=== PATIENT | male | born 1955 | race Hispanic/Latino ===

== ENCOUNTER 2020-08-24 21:14 | Emergency (ER) | payer BC, OTHER ==
[~2020-08-24] VITALS: Ht 162.6 cm; Wt 90.7 kg
[~2020-08-24 21:14] MED LIST: ASPI-556 PO; LISI20TA24 PO; METO-408 PO; SIMV-43 PO
[2020-08-24 21:23] VITALS: BP 176/95
[2020-08-24 21:31] LABS: BASOPHILS % (AUTO) 0.5 % (0.0-5.0); EOSINOPHILS % (AUTO) 1.3 % (0.0-8.0); HEMATOCRIT 45.1 % (42-54); MEAN CORPUSCULAR HEMOGLOBIN 30.6 pg (27.0-33.0); MEAN CORPUSCULAR HGB CONC 33.9 g/dL (32.0-36.0); MEAN CORPUSCULAR VOLUME 90.2 fL (79-99); NEUTROPHILS % (AUTO) 64.7 % (40.0-77.0); PLATELET COUNT (AUTO) 424 K/uL (130-400); RED CELL DISTRIBUTION WIDTH 13.3 % (11.0-15.5); WHITE BLOOD COUNT (AUTO) 12.7 K/uL (4.8-10.8)
[2020-08-24 21:44] LABS: CARBON DIOXIDE 32 mmol/L (21-32); CHLORIDE 99 mmol/L (101-111); GLOMERULAR FILTR. RATE CALC 79 mL/min (>60); GLUCOSE,RANDOM 115 mg/dL (70-105); POTASSIUM 4.1 mmol/L (3.5-5.1); SODIUM SERUM 136 mmol/L (136-145); UREA NITROGEN, BLOOD 29 mg/dL (7-18)
[2020-08-24 21:46] LABS: INR 0.99 (0.85-1.15); PROTHROMBIN TIME 10.8 SEC (9.6-11.6)
[2020-08-24 21:54] LABS: ALANINE AMINOTRANSFERASE 26 U/L (12-78); ALBUMIN 4.3 g/dL (3.5-5.0); ASPARTATE AMINOTRANSFERASE 19 U/L (10-37); BILIRUBIN,TOTAL 0.4 mg/dL (0.2-1.0); CREATINE KINASE, TOTAL 66 U/L (21-232); MYOGLOBIN 26 ng/mL (10-92); TOTAL PROTEIN, SERUM 8.2 g/dL (6.0-8.3); TROPONIN I < 0.04 ng/mL (0.00-0.06)
[2020-08-24] MEDS ORDERED: FAMOTIDINE 20MG TAB PO ONE (22:00)
[2020-08-24] MEDS ORDERED: ASPIRIN 325 MG TABLET PO ONE (22:00)
[2020-08-24] MEDS ORDERED: LIDOCAINE HCL 2% VISCOUS 15 ML UDCUP PO ONE (22:00)
[2020-08-24] MEDS ORDERED: MAG/ALUM/SIMETH 30 ML UDCUP PO ONE (22:00)
[2020-08-24 22:02] VITALS: BP 123/87
[2020-08-24] MEDS ORDERED: FAMO-136 PO (23:48)
== END 2020-08-25 00:02 | disposition home or self-care (01) ==
LOC: EDH 21:14
DX: K29.70 Gastritis, unspecified, without bleeding (principal); R07.89 Other chest pain; I10 Essential (primary) hypertension; I25.10 Atherosclerotic heart disease of native coronary artery without angina pectoris; E10.9 Type 1 diabetes mellitus without complications; E78.00 Pure hypercholesterolemia, unspecified; Z95.0 Presence of cardiac pacemaker; Z98.890 Other specified postprocedural states; Z79.899 Other long term (current) drug therapy; Z79.82 Long term (current) use of aspirin
CPT/HCPCS: 36415; 71045; 80053; 82550; 83874; 84484; 85025; 85610; 93005

== ENCOUNTER 2022-02-21 14:45 | Emergency (ER) | payer OTHER ==
[~2022-02-21] VITALS: Ht 160 cm; Wt 81.6 kg
[~2022-02-21 14:45] MED LIST changes: +FAMO-136 PO
[2022-02-21] MEDS ORDERED: LIDOCAINE HCL 1% 20 ML VIAL ONE (19:47)
[2022-02-21] MEDS ORDERED: TETANUS/DIPHTHERIA TOXOID [ADULT] 0.5 ML VIAL IM ONE ×2 (19:49→20:00)
[2022-02-21] MEDS ORDERED: CLINDAMYCIN 150 MG CAP ONE (19:57)
[2022-02-21] MEDS ORDERED: CLIN-141 PO (21:10)
[2022-02-21 21:17] VITALS: BP 133/86
== END 2022-02-21 21:18 | disposition home or self-care (01) ==
LOC: EDH 14:45
DX: S60.351A Superficial foreign body of right thumb, initial encounter (principal); I10 Essential (primary) hypertension; E11.9 Type 2 diabetes mellitus without complications; E78.00 Pure hypercholesterolemia, unspecified; I25.10 Atherosclerotic heart disease of native coronary artery without angina pectoris; Z98.890 Other specified postprocedural states; Z79.899 Other long term (current) drug therapy; Z79.82 Long term (current) use of aspirin; W45.8XXA Other foreign body or object entering through skin, initial encounter; Y93.89 Activity, other specified; Y92.89 Other specified places as the place of occurrence of the external cause; Y99.8 Other external cause status
CPT/HCPCS: 73130; 90471; 90714

== ENCOUNTER 2023-12-24 05:44 | Day surgery (SDC) | payer OTHER ==
[2023-12-24] VITALS (10 sets, daily range): BP systolic 127–159; BP diastolic 60–75; PULSE 60–68; RESP 15–18; TEMP 97.3–97.9
[~2023-12-24] VITALS: Ht 162.6 cm; Wt 85.3 kg
[~2023-12-24 05:44] MED LIST changes: +ATOR40TA71 PO; -FAMO-136 PO; +HYDR12.54 PO; -LISI20TA24 PO; +METO-391 PO; -METO-408 PO; -SIMV-43 PO; +VALS160T29 PO
[2023-12-24] MEDS: 0.9%NACL 1000ML 1,000 ML IV ONE (06:37)
[2023-12-24] MEDS ORDERED: proPOFol 10 MG/ML 20ML VIAL IV ONE ×2 (07:16→07:26)
[2023-12-24] MEDS ORDERED: ePHEDrine SULFate 50 MG/ML AMPULE ONE (07:37)
[2023-12-24] MEDS ORDERED: PANT40TA54 PO (08:39)
[2023-12-24] MEDS ORDERED: HYDR30CR79 TP (08:52)
== END 2023-12-24 09:00 | disposition home or self-care (01) ==
LOC: ENDO 05:44 → DAH 05:44 → ENDO 09:00
PROVIDERS: ATTEND Internal Medicine Gastroenterology
DX: Z12.11 Encounter for screening for malignant neoplasm of colon (principal); D12.0 Benign neoplasm of cecum; K31.89 Other diseases of stomach and duodenum; R12 Heartburn; K29.70 Gastritis, unspecified, without bleeding; K57.30 Diverticulosis of large intestine without perforation or abscess without bleeding; K64.0 First degree hemorrhoids; K64.4 Residual hemorrhoidal skin tags; I10 Essential (primary) hypertension; E78.5 Hyperlipidemia, unspecified; I25.10 Atherosclerotic heart disease of native coronary artery without angina pectoris; Z95.5 Presence of coronary angioplasty implant and graft; Z79.82 Long term (current) use of aspirin; Z79.899 Other long term (current) drug therapy
CPT/HCPCS: 45385; 43239; J7030; J3490; J2704 ×2; A4620; A4215 ×2; A4223; A4222; A4221; A4663; A4606

== ENCOUNTER 2024-03-02 12:06 | Observation (INO) | payer OTHER, MEDICARE ==
[~2024-03-02] VITALS: Ht 162.6 cm; Wt 87.0 kg
[~2024-03-02 12:06] MED LIST changes: +HYDR30CR79 TP; +PANT40TA54 PO
[2024-03-02] MEDS: hydrALAZine 20MG/ML VIAL ONE (12:33)
[2024-03-02] MEDS: hydrALAZine 20MG/ML VIAL IV ONE (12:33)
[2024-03-02 12:39] LABS: BASOPHILS # (AUTO) 0.04 K/uL (0.00-0.20); BASOPHILS % (AUTO) 0.5 % (0.0-5.0); EOSINOPHILS # (AUTO) 0.06 K/uL (0.00-0.70); EOSINOPHILS % (AUTO) 0.8 % (0.0-8.0); HEMATOCRIT 42.2 % (42-54); IMMATURE GRANULOCYTE ABSOLUTE 0.03 K/uL (0-1); LYMPHOCYTES # (AUTO) 1.4 K/uL (1.0-4.8); LYMPHOCYTES % (AUTO) 17.4 % (21.0-51.0); MEAN CORPUSCULAR HEMOGLOBIN 29.9 pg (27.0-33.0); MEAN CORPUSCULAR HGB CONC 33.2 g/dL (32.0-36.0); MONOCYTES # (AUTO) 0.5 K/uL (0.1-1.0); MONOCYTES % (AUTO) 6.1 % (3.0-13.0); NEUTROPHILS # (AUTO) 5.9 K/uL (1.8-7.7); NEUTROPHILS % (AUTO) 74.8 % (40.0-77.0); PLATELET COUNT (AUTO) 386 K/uL (130-400); RED BLOOD CELL COUNT(AUTO) 4.69 MIL/uL (4.50-6.20); RED CELL DISTRIBUTION WIDTH 13.7 % (11.0-15.5); WHITE BLOOD COUNT (AUTO) 7.9 K/uL (4.8-10.8)
--- NOTE | 2024-03-02 12:45 | EKG ---
[facility] Test Date: 2024-03-02 Test Time: 12:17:59 Pat Name: KEO ALDRIDGE Department: ED Room: 431 Gender: M Marketing Agent: [id number] : 1955 Requested By: CATRACHITA HENSON Order Number: [id number] Reading MD: Lorelei Garrett Measurements Intervals [place] Rate: 64 P: 40 NM: 180 QRS: -21 QRSD: 101 T: 20 QT: 410 QTc: 422 Interpretive Statements Sinus rhythm Probable left ventricular hypertrophy Compared to ECG 08/24/2020 21:21:16 Myocardial infarct finding no longer present Electronically Signed On 03-03-2024 08:17:07 BANKING TEACHER by Lorelei Garrett Please click the below link to view image of tracing.
--- NOTE | 2024-03-02 12:45 | ERN ---
General Chief Complaint: Chest Pain Stated Complaint: CP Time Seen by MD: 12:17 Time Seen by Midlevel: 12:17 Source: patient History of Present Illness Initial Comments Patient is a 68-year-old male with a past medical history of hypertension and atrial fibrillation presenting to the emergency department with chest pain that has been ongoing for the last 2-3 days. Patient does report having an extensive history of GERD and believes his chest pain was attributed to this. He has been seen in our emergency department numerous times for the same complaint and his diagnosis is usually GERD. Today he states his chest pain felt different so he decided to report to the ER for further evaluation. His current medications include atorvastatin, pantoprazole, metoprolol, and valsartan. Allergies: Coded Allergies: No Known Drug Allergies (Unverified Allergy, Unknown, 08/24/20) Home Meds Reported Medications Latanoprost (Latanoprost) 0.005 % Drops, 1 DROP OP HS, ML 0 Refills 03/02/24 Pantoprazole Sodium (Pantoprazole Sodium) 40 Mg Tablet.dr, 1 TAB PO DAILY for 30 Days, #30 TAB 0 Refills 12/24/23 Hydrochlorothiazide (Hydrochlorothiazide) 12.5 Mg Tablet, 12.5 MG PO DAILY, TAB 12/23/23 Atorvastatin Calcium (Atorvastatin Calcium) 40 Mg Tablet, 40 MG PO DAILYBKFST, TAB 12/23/23 Valsartan (Valsartan) 160 Mg Tablet, 160 MG PO DAILY, TAB 12/23/23 Metoprolol Succinate (Metoprolol Succinate) 50 Mg Tab.er.24h, 50 MG PO DAILYBKFST, TAB 12/23/23 Aspirin (Aspir 81) 81 Mg Tablet.dr, 81 MG PO AM, TAB 07/25/14 Past Medical History Past Medical History: CAD, Diabetes-Type I, High Cholesterol, Hypertension Past Surgical History: Other Surgical History Other: STENT CARDIAC, LT SHOULDER Family History Family History: Negative Social History Social History: Negative ROS Dictation CONSTITUTIONAL: Negative except for HPI HEAD/FACE: Negative except for HPI EENT: Negative except for HPI RESPIRATORY: Negative except for HPI GASTROINTESTINAL/ABDOMINAL: Negative except for HPI GENITOURINARY: Negative except for HPI MUSCULOSKELETAL: Negative except for HPI INTEGUMENTARY: Negative except for HPI NEUROLOGICAL/PSYCH: Negative except for HPI HEMATOLOGIC/LYMPHATIC: Negative except for HPI All Systems Negative, Except as noted above. 13 point review of systems assessed and all negative except for above. Physical Exam Physical Exam Dictation Vital Signs reviewed General Appearance: Alert, oriented x 3, no acute distress, well developed, nourished. Head and Face: non-traumatic. Eyes: PERRL, pink conjunctivas, eyelid no trauma, anterior chamber with arcus senilis. Ears: Pinnas intact and no signs of trauma or erythema ear canals clear and no discharge TM no erythema Nose: No discharge, no bleeding. Oropharynx: Mouth normal, tongue pink, pharynx clear,no erythema, tonsils no exudates, no abscesses noted, mucous membrane moist Neck: Supple, non-tender, no thyromegaly, no masses, no JVD, no bruits Breast:Deferred Chest:No tenderness, no crepitus, no paradoxical movement, no retractions Lungs:Clear, well-ventilated, symmetric, no rales, no wheezing, no rhonchi, no stridor, good breath sounds bilaterally Heart: Regular rate, regular rhythm, no murmur, no gallops Vascular: no peripheral edema, Abdomen: Soft, positive bowel sounds, nondistended, no guarding, nontender, no rebound, no masses no hepatomegaly, no splenomegaly, no Martinez's sign, no hernias. Rectal: Deferred Genital: Deferred Neurological: Normal speech, motor function intact, sensory function intact Musculoskeletal: Neck nontender, full range of motion, back nontender, full range of motion, Extremities: nontender, full range of motion Skin: Color pink, dry, no turgor, no rash, no lacerations, no abrasions, no contusions. Lymphatic: Deferred Results Laboratory and Microbiology Lab and Micro Result Laboratory Tests Test 03/02/24 12:20 03/02/24 12:45 03/02/24 12:53 03/02/24 13:57 White Blood Count 7.9 K/uL (4.8-10.8) Red Blood Count 4.69 MIL/uL (4.50-6.20) Hemoglobin 14.0 g/dL (14.0-18.0) Hematocrit 42.2 % (42-54) Mean Corpuscular Volume 90.0 fL (79-99) Mean Corpuscular Hemoglobin 29.9 pg (27.0-33.0) Mean Corpuscular Hemoglobin Concent 33.2 g/dL (32.0-36.0) Red Cell Distribution Width 13.7 % (11.0-15.5) Platelet Count 386 K/uL (130-400) Mean Platelet Volume 9.5 fL (7.5-10.5) Immature Granulocyte % (Auto) 0.4 % (0-1) Neutrophils (%) (Auto) 74.8 % (40.0-77.0) Lymphocytes (%) (Auto) 17.4 % (21.0-51.0) L Monocytes (%) (Auto) 6.1 % (3.0-13.0) Eosinophils (%) (Auto) 0.8 % (0.0-8.0) Basophils (%) (Auto) 0.5 % (0.0-5.0) Neutrophils # (Auto) 5.9 K/uL (1.8-7.7) Lymphocytes # (Auto) 1.4 K/uL (1.0-4.8) Monocytes # (Auto) 0.5 K/uL (0.1-1.0) Eosinophils # (Auto) 0.06 K/uL (0.00-0.70) Basophils # (Auto) 0.04 K/uL (0.00-0.20) Absolute Immature Granulocyte (auto 0.03 K/uL (0-1) Nucleated Red Blood Cells 0.0 % (0.0-0.19) Troponin I High Sensitivity 5 ng/L (4-75) B-Type Natriuretic Peptide 82 pg/mL (0-100) Troponin I < 0.05 ng/mL (0.00-0.05) Sodium Level 138 mmol/L (136-145) Potassium Level 3.8 mmol/L (3.5-5.1) Chloride Level 103 mmol/L (101-111) Carbon Dioxide Level 25 mmol/L (21-32) Blood Urea Nitrogen 15 mg/dL (7-18) Creatinine 0.8 mg/dL (0.5-1.3) Glomerular Filtration Rate Calc 95 mL/min (>90) Random Glucose 135 mg/dL (70-105) H Total Calcium 9.1 mg/dL (8.5-10.1) Total Creatine Kinase 75 U/L (21-232) Urine Color LIGHT-YELLOW (YELLOW) Urine Appearance CLEAR (CLEAR) Urine pH 7.5 (5.0-8.0) Urine Specific Dema 1.015 (1.001-1.031) Urine Protein NEGATIVE mg/dL (NEGATIVE) Urine Glucose (UA) NEGATIVE mg/dL (NEGATIVE) Urine Ketones 5 mg/dL (NEGATIVE) H Urine Occult Blood NEGATIVE (NEGATIVE) Urine Nitrate NEGATIVE (NEGATIVE) Urine Bilirubin NEGATIVE mg/dL (NEGATIVE) Urine Urobilinogen 0.2 mg/dL (0.2-1.0) Urine Leukocyte Esterase NEGATIVE Ifeoma/uL Urine RBC 0-1 /HPF (0-1) Urine WBC 0-1 /HPF (0-1) Urine Squamous Epithelial Cells RARE /HPF (0-2) Urine Bacteria None /HPF (None Seen) Labs Reviewed?: Yes MDM MDM: Differential diagnosis: ACS, angina, pneumonia, electrolyte abnormality, dehydration, NSTEMI Rationale: Tests considered and ordered secondary to shared decision making include: Previous outside records reviewed: Old ER visits. Risk of complication and/or morbidity or mortality of patient management: None Medications-Per medication reconciliation Need for hospitalization: Patient does meet criteria for hospitalization. Need for emergency major/minor surgery: No There are no social concerns with this patient. Prescription drug management Prescriptions will include symptomatic care Patient's prior external medical records from other ER visits were reviewed by me as indicated. Prior testing and results from previous visits were reviewed. Prior tests were taken into account with medical decision making and resource utilization, independent historian/historians were used to obtain complete medical history. I independently interpreted the test that were performed, results were reviewed by me and considered findings on radiology if ordered. Medical management and examination interpretation discussions were had by me with other qualified healthcare professionals as indicated for the patient's care. ED Course Orders Procedure Category Date Status Time Vital Signs Per CPOE 03/02/24 Transmitted Routine 12:12 B-Type Natriuretic LAB 03/02/24 Complete Peptide 12:12 Chest 1vw RAD 03/02/24 Resulted 12:12 12 Lead Ekg Tracing- EKG 03/02/24 Complete Technical 12:12 Oxygen By Nc/Pulse Ox CPOE 03/02/24 Transmitted 12:12 Maintain Iv CPOE 03/02/24 Transmitted 12:12 Iv Insertion CPOE 03/02/24 Transmitted 12:12 Cardiac Monitoring CPOE 03/02/24 Transmitted 12:12 Pulse Oximetry With CPOE 03/02/24 Transmitted Vs And Prn 12:12 Cbc With Differential LAB 03/02/24 Complete 12:12 Activity: Br W/Brp CPOE 03/02/24 Transmitted With Assist 12:12 Urinalysis Profile LAB 03/02/24 Complete 12:12 Troponin Poc Order LAB 03/02/24 Complete Only 12:12 Bedside Troponin-I LAB.ER 03/02/24 In Process (Poc) 12:12 Troponin I High LAB 03/02/24 Complete Sensitivity 12:14 Hydralazine 20mg Inj PHA 03/02/24 Complete (Apresoline 20mg In 12:22 Hydralazine 20mg Inj PHA 03/02/24 Complete (Apresoline 20mg In 12:30 Basic Metabolic Panel LAB 03/02/24 Complete 12:45 Creatine Kinase, Total LAB 03/02/24 Complete 12:45 Current Medications Medications (Trade) Dose Ordered Sig/Keagan Route PRN Reason Start Time Stop Time Status Last Admin Dose Admin Hydralazine HCl (APRESOLine 20MG INJ) 10 mg ONCE ONCE IV 03/02/24 12:30 03/02/24 12:31 DC 03/02/24 12:33 Hydralazine HCl (APRESOLine 20MG INJ) 20 mg STK-MED ONCE .ROUTE 03/02/24 12:22 03/02/24 12:22 DC Vital Signs Date Time Temp Pulse Resp B/P (MAP) Pulse Ox O2 Delivery O2 Flow Rate FiO2 03/02/24 13:19 68 14 165/80 98 Room Air* 0 21 03/02/24 12:25 67 18 203/99 97 Room Air* 0 21 03/02/24 12:25 67 18 203/99 Room Air 0 HEART Score Response (Comments) Value History: Moderate suspicion (+1) 1 EKG: Normal 0 Age: > 65yrs (+2) 2 Risk Factors: 3+ risk factors (+2) 2 Initial Troponin: Normal limit (0) 0 HEART Score Risk: Mod Risk for MACE (4-6) Total 5 DX & DISP Disposition: Inpatient Decision to Admit Date: Mar 02, 2024 Departure Impression: Primary Impression: Angina at rest Additional Impression: Chest pain Condition: Stable Referrals: CHRYSTAL CLINTON (PCP) I have reviewed the case, and I agree with, Diagnosis and Plan I performed the substantive portion of the visit. I have reviewed and personally made and approve the management plan that is documented in the note by myself or the ALY. I acknowledge for responsibility for the patient's management plan. AISSATOU CARNES Mar 02, 2024 12:44
--- NOTE | 2024-03-02 13:00 | HMCIMG ---
CHEST 1VW HISTORY: Chest pain COMPARISON: 08/24/2020 FINDINGS: A frontal projection of the chest was obtained. No acute pulmonary infiltrates is seen. The heart is normal in size. Prominent interstitial markings are seen. Degenerative changes are seen. Aortic calcifications are seen. IMPRESSION: 1. No acute pulmonary infiltrate is seen.
[2024-03-02 13:06] LABS: B-TYPE NATRIURETIC PEPTIDE 82 pg/mL (0-100)
[2024-03-02 13:14] LABS: CREATININE 0.8 mg/dL (0.5-1.3); POTASSIUM 3.8 mmol/L (3.5-5.1)
[2024-03-02 14:33] LABS: ADD UA MICROSCOPIC YES; APPEARANCE,URINE CLEAR (CLEAR); BILIRUBIN,URINE NEGATIVE (NEGATIVE); COLOR,URINE LIGHT-YELLOW (YELLOW); GLUCOSE, URINE (UA) NEGATIVE (NEGATIVE); KETONES,URINE 5 mg/dL (NEGATIVE); LEUKOCYTE ESTERASE ,URINE NEGATIVE Leu/uL (NEGATIVE); NITRATE,URINE NEGATIVE (NEGATIVE); OCCULT BLOOD,URINE NEGATIVE (NEGATIVE); PH,URINE 7.5 (5.0-8.0); PROTEIN,URINE NEGATIVE (NEGATIVE); UROBILINOGEN,URINE 0.2 mg/dL (0.2-1.0)
[2024-03-02 14:35] LABS: MUCUS,URINE RARE LPF (None Seen); RBC,URINE 0-1 /HPF (0-1); SQUAMOUS EPITHELIAL CELL,UR RARE /HPF (0-2); WBC,URINE 0-1 /HPF (0-1)
--- NOTE | 2024-03-02 16:18 | NUR ---
HOME MEDICATIONS UPDATED ON EMR
--- NOTE | 2024-03-02 16:24 | EKG ---
[facility] Test Date: 2024-03-02 Test Time: 16:21:11 Pat Name: KEO ALDRIDGE Department: [facility]HIP Room: 431 Gender: M Bending Frame Operator: [id number] : 1955 Requested By: JOSE PEREZ Order Number: [id number] Reading MD: Lorelei Garrett Measurements Intervals [place] Rate: 65 P: 34 ID: [id number] QRS: -27 QRSD: 101 T: 16 QT: 434 QTc: 452 Interpretive Statements Sinus rhythm Probable left ventricular hypertrophy Compared to ECG 03/02/2024 12:17:59 No significant changes Electronically Signed On 03-03-2024 08:17:28 MOSAIC WORKER by Lorelei Garrett Please click the below link to view image of tracing.
[2024-03-02] MEDS ORDERED: MAG/ALUM/SIMETH 30 ML UDCUP PO PRN (16:30)
[2024-03-02] MEDS ORDERED: ondanSETRON 4MG INJ IV PRN (16:30)
[2024-03-02] MEDS ORDERED: doCUSate SODIUM 100 MG CAP PO PRN (16:30)
[2024-03-02] MEDS ORDERED: LACTULOSE 20 GM/30 ML UDCUP PO PRN (16:30)
[2024-03-02] MEDS ORDERED: DiphenhydrAMINE HCL 25 MG CAPSULE PO PRN (16:30)
[2024-03-02] MEDS: INSULIN humuLIN R 100 UNIT/ML 3ML SQ SCH (16:30)
[2024-03-02] MEDS ORDERED: guaiFENesin-DM 200/20MG 10ML PO PRN (16:30)
[2024-03-02] MEDS ORDERED: ALPRAZolam 0.5 MG TABLET PO PRN (16:30)
[2024-03-02] MEDS ORDERED: acetaMINOPHEN 325 MG TAB PO PRN ×2 (16:30)
[2024-03-02] MEDS ORDERED: BENZOCAINE/MENTH/CETYLPYRD CL 1 EACH LOZENGE MM PRN (16:30)
[2024-03-02] MEDS ORDERED: DiphenhydrAMINE HCL 50 MG/ML VIAL IV PRN (16:30)
[2024-03-02] MEDS ORDERED: LOPERAMIDE HCL 2 MG CAP PO PRN (16:30)
[2024-03-02] MEDS ORDERED: NITROGLYCERIN 0.4 MG SL TAB SL PRN (16:30)
[2024-03-02] MEDS ORDERED: polyETHYLene GLYCol 3350 17 GM POWD.PACK PO PRN (16:30)
[2024-03-02] MEDS ORDERED: ARTIFICAL TEARS SOL 15 ML OP PRN (16:30)
[2024-03-02] MEDS ORDERED: guaiFENesin SUGAR-FREE 100 MG/5 ML UDCUP PO PRN (16:30)
[2024-03-02] MEDS: LIDOCAINE HCL 2% VISCOUS 30 ML, MAG/ALUM/SIMETH 30ML 30 ML, DICYCLOMINE HCL 20 MG PO PRN (16:32)
[2024-03-02] MEDS: LIDOCAINE HCL 2% VISCOUS 15 ML UDCUP ONE (16:32)
[2024-03-02] MEDS: DICYCLOMINE HCL 10 MG/5 ML ML PO ONE (16:32)
[2024-03-02 16:49] LABS: HEMOGLOBIN A1C 6.3 % (4.0-6.0); INR 1.02 (0.85-1.15); PROTHROMBIN TIME 11.4 SEC (9.6-11.6)
[2024-03-02 16:50] LABS: PARTIAL THROMBOPLASTIN TIME 28.5 SEC (26.3-35.5)
--- NOTE | 2024-03-02 17:20 | HP ---
[facility] HISTORY & PHYSICAL Date Patient Seen: Mar 02, 2024 Time of Visit: 2099 Supervising Physician: [Dr. Savage Ann ] Primary Care Physician: [Dr. Schaefer ] Outpatient Specialists: [Dr. Ma-cardiology ] Inpatient Consults: [ ] PROBLEM LIST: Chest pain, rule-out ACS event-POA Hypertensive urgency,resolved-POA CAD s/p stent WPW s/p ablation Primary HTN HLD Gastritis Fungal infection on toes PLAN: -Admit to medsur telemetry -Serial troponin q6H, trend EKG -Monitor EKG changes -ACS risk stratification: TSH, lipid panel, Hg A1c -Obtain echo in am -Manage pain PRN -Maintain hemodynamic stability, PRN IV Labetalol for SBP >160 -Consider cardiology consult if clinical presentation worsens, changes on EKG and uptrending troponin. Day team to follow-up pls -Continue ASA and statin. HPI: [Patient is a 68-year-old male with PMH significant for CAD, W[place] s/p stent, WPW s/p ablation, HTN, gastritis and HLD who has presented to the ED concerning 3- day duration epigastric pain, worst today without known triggers or provocation. He claims that he was not sure if the pain was gastritis-related or cardiac pain. It seems like the same when he had the WV 15 years ago but this time without the accompanying N/V, dyspnea, diaphoresis or dizziness. Negative for radiation or migration and describes it as "small little pricks" with a scale of 8/10. His BP upon ED arrival was 203/99. His labworks were unremarkable and troponin was WNL, no EKG significant findings. He was given Pepcid, Bentyl and GI cocktail. IV Hydralazine was also given to address the hypertensive urgency. Physical assessment was unrevealing without reproducible chest tenderness and currently has ZERO PAIN. Goals of care were discussed with the patient verbalizing understanding and agreement. ] PAST MEDICAL HX: see above PAST SURGICAL HX: noncontributory SOCIAL HISTORY: No tobacco, ETOH, or illicit drug use Coded Allergies: No Known Drug Allergies (Unverified Allergy, Unknown, 08/24/20) REVIEW OF SYSTEMS: 12 point ROS reviewed with patient. Pertinent positives mentioned above. Otherwise negative. PHYSICAL EXAM: GENERAL: alert, awake oriented x 3 HEENT: EOMI, Sclera non icteric, moist mucosa NECK: Supple, no JVD, trachea midline LUNGS: Clear breath sounds bilaterally. No wheezes HEART: Regular rate and rhythm. Normal S1 and S2, without murmurs ABD: Abdomen soft, nontender. Bowel sounds present EXT: No clubbing cyanosis or edema NEURO: Alert and oriented to person, follows commands Vital Signs (last 8hr) Date Time Temp Pulse Resp B/P (MAP) Pulse Ox O2 Delivery O2 Flow Rate FiO2 03/02/24 13:19 68 14 165/80 98 Room Air* 0 21 03/02/24 12:25 67 18 203/99 97 Room Air* 0 21 03/02/24 12:25 67 18 203/99 Room Air 0 LABS: Hematology Labs: Test 03/02/24 12:20 Range/Units White Blood Count 7.9 4.8-10.8 K/uL Red Blood Count 4.69 4.50-6.20 MIL/uL Hemoglobin 14.0 14.0-18.0 g/dL Hematocrit 42.2 42-54 % Mean Corpuscular Volume 90.0 79-99 fL Mean Corpuscular Hemoglobin 29.9 27.0-33.0 pg Mean Corpuscular Hemoglobin Concent 33.2 32.0-36.0 g/dL Red Cell Distribution Width 13.7 11.0-15.5 % Platelet Count 386 130-400 K/uL Mean Platelet Volume 9.5 7.5-10.5 fL Immature Granulocyte % (Auto) 0.4 0-1 % Neutrophils (%) (Auto) 74.8 40.0-77.0 % Lymphocytes (%) (Auto) 17.4 L 21.0-51.0 % Monocytes (%) (Auto) 6.1 3.0-13.0 % Eosinophils (%) (Auto) 0.8 0.0-8.0 % Basophils (%) (Auto) 0.5 0.0-5.0 % Neutrophils # (Auto) 5.9 1.8-7.7 K/uL Lymphocytes # (Auto) 1.4 1.0-4.8 K/uL Monocytes # (Auto) 0.5 0.1-1.0 K/uL Eosinophils # (Auto) 0.06 0.00-0.70 K/uL Basophils # (Auto) 0.04 0.00-0.20 K/uL Absolute Immature Granulocyte (auto 0.03 0-1 K/uL Nucleated Red Blood Cells 0.0 0.0-0.19 % Chemistry Labs: Test 03/02/24 16:36 03/02/24 16:26 03/02/24 12:53 03/02/24 12:45 Range/Units Whole Blood Glucose 123 H 70-110 MG/DL Hemoglobin A1c 6.3 H 4.0-6.0 % Estimated Average Glucose (eAG) 134 H 70-126 mg/dL Total Creatine Kinase 85 21-232 U/L Troponin I High Sensitivity 9.1 4-75 ng/L B-Type Natriuretic Peptide 70 0-100 pg/mL Triglycerides Level 43 30-200 mg/dL Cholesterol Level 99 <200 mg/dL LDL Cholesterol 52 0-99 mg/dL HDL Cholesterol 38 29-71 mg/dL Sodium Level 138 136-145 mmol/L Potassium Level 3.8 3.5-5.1 mmol/L Chloride Level 103 101-111 mmol/L Carbon Dioxide Level 25 21-32 mmol/L Blood Urea Nitrogen 15 7-18 mg/dL Creatinine 0.8 0.5-1.3 mg/dL Glomerular Filtration Rate Calc 95 >90 mL/min Random Glucose 135 H 70-105 mg/dL Total Calcium 9.1 8.5-10.1 mg/dL Troponin I < 0.05 0.00-0.05 ng/mL Coagulation Labs: Test 03/02/24 16:26 Range/Units Prothrombin Time 11.4 9.6-11.6 SEC Prothromb Time International Ratio 1.02 0.85-1.15 Activated Partial Thromboplast Time 28.5 26.3-35.5 SEC DIAGNOSTICS / RADIOLOGY RESULTS: [ ] PLAN NEURO: Minimize central acting medications as possible. Maintain fall precautions, adequate lighting during the day PULMONARY: Supplemental 02 as needed. Maintain aspiration precautions at all times CARDIOVASCULAR: Follow hemodynamics. Vital signs per facility protocol GI & NUTRITION: Continue with nutritional support. Continue stool softeners and laxatives as needed. KIDNEYS & ELECTROLYTES: Strict monitoring of intake, output and overall fluid balance. Avoid nephrotoxic medications to the extent possible. Medications to be dosed according to renal function. Monitor electrolytes and replace as needed ENDOCRINE: Maintain blood glucose between 100-180 at all times. Hypoglycemia protocol in place INFECTIOUS DISEASE: Trend temperature, WBC and procalcitonin level Follow cultures, deescalate antibiotics as soon as possible. Panculture if new onset fever ONCOLOGY/HEMATOLOGY/COAGULATION: Monitor for s/s of bleeding Monitor hemoglobin, coagulation studies as needed SKIN: Pressure ulcer prevention per facility protocol Specialty mattress ORTHO/REHAB: Continue PT/OT Prophylaxis: Continue GI and DVT prophylaxis Code Status: Full Resuscitation Disposition: TBD Other: Total patient care time: 35 minutes MARICRUZ MANNING Mar 02, 2024 17:20
[2024-03-02] MEDS: FAMOTIDINE 20MG TAB PO SCH (19:28)
[2024-03-02] MEDS: FAMOTIDINE 20MG TAB ONE (19:33)
[2024-03-02] MEDS ORDERED: LATA2.5D14 OP (20:21)
[2024-03-02] MEDS: atorVAStatin 40 MG TABLET PO SCH (23:30)
[2024-03-02 23:40] VITALS: O2SAT 95
--- NOTE | 2024-03-02 23:40 | NUR ---
arrival patient alert and oriented times 4. plan of care discussed with him and he verbalized understanding. patient showered when he came. home meds are entered. patient has no pain or any symptoms. He is ambulatory. He has slept about 3 hours tonight. call light within reach, bed alarm on, 2 side rails up, will continue to monitor patient.
[2024-03-03] VITALS: BP 186/95; PULSE 71; RESP 18; TEMP 97.5
[2024-03-03] MEDS: LAbetaLOL 20MG SYG IV PRN (00:29)
[2024-03-03 00:57] LABS: THYROID STIMULATING HORMONE 3.05 uIU/mL (0.36-3.74)
[2024-03-03 01:14] VITALS: BP 165/76; PULSE 63
[2024-03-03 04:00] VITALS: BP 154/71; PULSE 65; RESP 18; TEMP 98.3
--- NOTE | 2024-03-03 07:27 | EKG ---
[facility] Test Date: 2024-03-02 Test Time: 16:51:19 Pat Name: KEO ALDRIDGE Department: [facility] Room: 431 1 Gender: M Cop: [id number] : 1955 Requested By: JOSE PEREZ Order Number: [id number] Reading MD: Lorelei Garrett Measurements Intervals [place] Rate: P: 0 [place]: 0 QRS: 0 QRSD: 0 T: 0 QT: 0 QTc: 0 Interpretive Statements Compared to ECG 03/02/2024 16:21:11 Sinus rhythm no longer present Electronically Signed On 03-03-2024 08:17:29 HOUSEHOLD WORKER by Lorelei Garrett Please click the below link to view image of tracing.
--- NOTE | 2024-03-03 07:27 | EKG ---
[facility] Test Date: 2024-03-02 Test Time: 23:52:25 Pat Name: KEO ALDRIDGE Department: [facility] Room: 431 1 Gender: M Eddy Current Inspector: [id number] : 1955 Requested By: JOSE PEREZ Order Number: [id number] Reading MD: Lorelei Garrett Measurements Intervals [place] Rate: 58 P: 47 [place]: 192 QRS: -15 QRSD: 92 T: -4 QT: 462 QTc: 453 Interpretive Statements Sinus bradycardia Moderate voltage criteria for LVH, may be normal variant Compared to ECG 03/02/2024 16:51:19 Left ventricular hypertrophy now present Electronically Signed On 03-03-2024 08:18:06 SHUTTLE BUS DRIVER by Lorelei Garrett Please click the below link to view image of tracing.
[2024-03-03 07:47] VITALS: BP 164/86; PULSE 70; RESP 15; TEMP 97.9
[2024-03-03 07:50] VITALS: O2SAT 98
[2024-03-03] MEDS: ASPIRIN 81MG CHEW TAB PO SCH (08:53)
[2024-03-03] MEDS: hydrALAZine 25MG TABLET PO PRN (08:54)
--- NOTE | 2024-03-03 09:35 | EKG ---
[facility] Test Date: 2024-03-03 Test Time: 08:26:57 Pat Name: KEO ALDRIDGE Department: [facility] Room: 431 1 Gender: M Stagecraft Teacher: [id number] : 1955 Requested By: LUIZA GUARDADO Order Number: [id number] Reading MD: Measurements Intervals [place] Rate: 66 P: 31 AL: 176 QRS: -22 QRSD: 94 T: -6 QT: 424 QTc: 444 Interpretive Statements Normal sinus rhythm Moderate voltage criteria for LVH, may be normal variant Compared to ECG 03/02/2024 23:52:25 Sinus bradycardia no longer present Please click the below link to view image of tracing.
--- NOTE | 2024-03-03 11:30 | NUR ---
[facility] CM MET WITH PT THIS MORNING ASSESSMENT DONE. PATIENT IS INDEPENDENT PRIOR TO ADMISSION, LIVES AT HOME WITH . DENIES ANY EQUIPMENT/SERVICES. FEELS SAFE TO GO BACK HOME, STILL DRIVE, ABLE TO ASSIST WITH TRANSPORTATION AND NEEDS NECESSARY. VERIFIED HOME PHYS ADDRESS: [id number] [place] [id number]. DCP HOME ONCE STABLE. CM TO CONTINUE TO FOLLOW UP. Addendum: 03/03/24 at 1708 by EDGAR ARRINGTON LVN CM Amended: Links added.
[2024-03-03 12:00] VITALS: BP 160/91; PULSE 72; RESP 15; TEMP 98
--- NOTE | 2024-03-03 15:28 | DS ---
[facility] DISCHARGE SUMMARY Date Patient Seen: Mar 03, 2024 Time of Visit: 15:17 Supervising Physician: MD DURAN Primary Care Physician: [Dr. Schaefer ] Outpatient Specialists: [Dr. Ma-cardiology ] Inpatient Consults: [ ] PROBLEM LIST: Chest pain, ruled-out ACS event-POA Hypertensive urgency,resolved-POA CAD s/p stent WPW s/p ablation Primary HTN HLD Gastritis/GERD Fungal infection on toes HOSPITAL COURSE: This is a case of a 68-year-old man that presented secondary to chest pain that he states has been ongoing for a week that progressively worsened. The patient states he has been taking Protonix as he had an endoscopy done several months ago so his gastritis and GERD. He has recently eaten and heavily season meet and believes that this is the cause of his discomfort but he is was unable to differentiate his symptoms and as a result decided to seek medical care in the emergency room. The patient states his pain was nonradiating and was epigastric and in his esophagus. The patient of note denied any abdominal pain, no nausea or vomiting. He was monitored inpatient and had negative troponin x4 with no EKG changes and no repeat symptoms. For now he will continue his Protonix 40 mg daily and recommend a bland diet, patient was advised to avoid any acidic, coffee and caffeinated drinks or spicy foods. He has to follow up with Gastroenterology for further adjustment of his medications. Continued Medications: Aspirin (Aspir 81) 81 Mg Tablet.dr 81 MG PO AM, TAB Atorvastatin Calcium (Atorvastatin Calcium) 40 Mg Tablet 40 MG PO DAILYBKFST, TAB Hydrochlorothiazide (Hydrochlorothiazide) 12.5 Mg Tablet 12.5 MG PO DAILY, TAB Latanoprost (Latanoprost) 0.005 % Drops 1 DROP OP HS, ML 0 Refills Metoprolol Succinate (Metoprolol Succinate) 50 Mg Tab.er.24h 50 MG PO DAILYBKFST, TAB Pantoprazole Sodium (Pantoprazole Sodium) 40 Mg Tablet.dr 1 TAB PO DAILY for 30 Days, #30 TAB 0 Refills Valsartan (Valsartan) 160 Mg Tablet 160 MG PO DAILY, TAB PHYSICAL EXAM: GENERAL: alert, awake oriented x 3 HEENT: EOMI, Sclera non icteric, moist mucosa NECK: Supple, no JVD, trachea midline LUNGS: Clear breath sounds bilaterally. No wheezes HEART: Regular rate and rhythm. Normal S1 and S2, without murmurs ABD: Abdomen soft, nontender. Bowel sounds present EXT: No clubbing cyanosis or edema NEURO: Alert and oriented to person, follows commands FOLLOW-UP: Follow-up with PCP in 2-3 days Gastroenterology in 1 week RECOMMENDATIONS: See Discharge Instructions This case was seen and discussed with my supervising physician. More than 30 minutes spent on discharge process, including evaluation of the patient, discussion with nursing staff, medication reconciliation and follow-up appointments JOSE PEREZ Mar 03, 2024 15:28
--- NOTE | 2024-03-03 18:20 | HMCSR ---
APPROVED REPORT EXAM: Two-dimensional and M-mode echocardiogram with Doppler and color Doppler. INDICATION ICD: Chest Pain 2D Dimensions RVDd4.2 cmLVEF(%)61.3 (>50%)LVED Vol(simp.)127.0 mL IVSd0.8 (0.7-1.1cm)FS(%)33 %LVES Vol(simp.)54.4 mL LVDd4.3 (3.8-5.6cm)LA (2D)4.5 (1.6-4.0cm)LVEF(%, simp.)57 % PWd1.0 (0.7-1.1cm)Ao Root(2D)3.0 (2.0-3.7cm)LA ESV INDEX (4CH)37.20 mL/m2 IVSs1.3 cmLVOT diam2.1 (1.8-2.4cm)LA ESV INDEX (2CH)34.20 mL/m2 LVDs2.9 (2.5-4.0cm)LA ESV INDEX (BP)36.60 mL/m2 PWs1.6 cm Deformation Strain Apical 419.0 % Apical 221.0 % Apical 325.0 % Global Jcuqql23.0 % M-Mode Dimensions EPSS1.0 cm LA (MM)4.3 (1.6-4.0cm) Ao Root(MM)3.1 (2.0-3.7cm) Aortic Valve AoV VTI0.5 mAo Mean GR8.0 mmHgLVOT VTI0.27 m JANE (VMAX)2.0 cm2AVA (VTI) 2.0 cm2 Mitral Valve MV E Vmax95.1 cm/sDECEL Wsew315 ms MV A Vmax78.6 cm/sP 1/2 T83 ms E/A ratio1.2MVA (PHT)2.7 cm2 TDI E/E' Rwsoli16.9E/E' Xkliwhq62.8 Medial E' Peak V5.30 cm/sLateral E' Peak V6.90 cm/s Left Ventricle The left ventricle is normal size. GLS -21% There is normal LV segmental wall motion. There is normal left ventricular wall thickness. LVEF is 55-60%. The left ventricular diastolic function is normal. Right Ventricle The right ventricle is mildly dilated. The right ventricular systolic function is normal. Atria The left atrium is mildly dilated. The right atrium size is normal. Aortic Valve The aortic valve is normal in structure. No aortic regurgitation is present. There is no aortic valvu lar stenosis. Mitral Valve The mitral valve is normal in structure. There is trace mitral valve regurgitation noted. There is no mitral valve stenosis. Tricuspid Valve The tricuspid valve is normal in structure. There is trace tricuspid valve regurgitation noted. Pulmonic Valve The pulmonary valve is normal in structure. There is no pulmonic valvular regurgitation. Great Vessels The aortic root is normal in size. The IVC is normal in size and collapses >50% with inspiration. Pericardium There is no pericardial effusion. Other Information Quality : Adequate Conclusion LVEF is 55-60%. GLS -21% There is normal LV segmental wall motion. The aortic root is normal in size. There is no pericardial effusion.
[2024-03-03] MEDS ORDERED: LATANOPROST 2.5 ML DROPS OP SCH (21:00)
[2024-03-03] MEDS ORDERED: atorVAStatin 40 MG TABLET PO SCH (21:00)
[2024-03-04] MEDS ORDERED: PANTOPrazole 40 MG TAB DR PO SCH (09:00)
[2024-03-04] MEDS ORDERED: ASPIRIN 81 MG EC TAB PO SCH (09:00)
[2024-03-04] MEDS ORDERED: hydroCHLOROthiazide 25 MG TABLET PO SCH (09:00)
[2024-03-04] MEDS ORDERED: LoSARTan 100 MG TABLET PO SCH (09:00)
== END 2024-03-03 16:15 | disposition home or self-care (01) ==
LOC: EDH 12:06 → EDHIP 16:03 → 4AH 23:21
PROVIDERS: ADMIT Internal Medicine Critical Care Medicine; ATTEND Internal Medicine Critical Care Medicine
DX: I25.119 Atherosclerotic heart disease of native coronary artery with unspecified angina pectoris (principal); I10 Essential (primary) hypertension; K21.9 Gastro-esophageal reflux disease without esophagitis; K29.70 Gastritis, unspecified, without bleeding; B35.1 Tinea unguium; I16.0 Hypertensive urgency; E10.9 Type 1 diabetes mellitus without complications; E78.2 Mixed hyperlipidemia; I48.91 Unspecified atrial fibrillation; I25.2 Old myocardial infarction; Z95.5 Presence of coronary angioplasty implant and graft; Z79.899 Other long term (current) drug therapy
CPT/HCPCS: 96374; 99285; 83036; 82550 ×4; 84484 ×5; 80061; 80048; 83880 ×2; 85025; 85610; 85730; 82948 ×4; 81001; 36415 ×2; 71045; 93005 ×5; 96375; 84443; 83690; 93306; 93356; G0378 ×23; J0360